=== PATIENT | male | born 1980 | race American Indian/Alaskan Native ===

== ENCOUNTER 2016-09-07 16:59 | Outpatient (CLI) | payer BC ==
--- NOTE | 2016-09-10 14:47 | Magnetic Resonance Report ---
MRI OF THE BRAIN AND PITUITARY WITHOUT AND WITH CONTRAST: CLINICAL: Testicular hypofunction. COMPARISON: None. TECHNIQUE: Sagittal T1, axial FLAIR and T2 whole brain sequences plus sagittal, coronal and axial thin slice postcontrast T1 pituitary sequences on a 1.5 Kimberlee magnet. 15cc of Multihance was injected intravenously for the contrast portion of the exam. Consent was obtained prior to the administration of contrast. FINDINGS: The ventricles and sulci are normal for age. The pituitary is small with heterogeneous enhancement and is flattened by CSF in the sella turcica. No abnormal focal enhancement or lack of enhancement. The suprasellar cistern, optic chiasm and infundibulum of the pituitary gland appear normal. The cavernous sinuses appear normal. An 8mm cyst of the left occipital lobe white matter. No other abnormal signal. IMPRESSION: 1. A small pituitary with with no definitive mass or nodule. A tiny microadenoma remains a possibility. 2. A benign 8mm left occipital lobe white matter cyst.
== END 2016-09-07 17:00 | disposition home or self-care (01) ==
LOC: MRI 16:59
PROVIDERS: ATTEND Urology
DX: G31.89 Other specified degenerative diseases of nervous system (principal); E29.1 Testicular hypofunction
CPT/HCPCS: 70553; A9577